=== PATIENT | male | born 1975 | race Caucasian/White ===

== ENCOUNTER 2017-12-19 14:44 | Emergency (ER) | payer OTHER ==
[~2017-12-19] VITALS: Ht 190.5 cm; Wt 92.5 kg
[2017-12-19 15:19] LABS: BASOPHILS # (AUTO) 0.04 x10^3/uL (0-0.1); BASOPHILS % (AUTO) 1 % (0-1); EOSINOPHILS # (AUTO) 0.15 x10^3/uL (0-0.4); EOSINOPHILS % (AUTO) 2 % (1-7); LYMPHOCYTES # (AUTO) 2.44 x10^3/uL (1-3.4); LYMPHOCYTES % (AUTO) 33 % (22-44); MD NO; MEAN CORPUSCULAR HEMOGLOBIN 31.2 pg (27.5-34.5); MEAN CORPUSCULAR HGB CONC 34.3 g/dL (33.2-36.2); MEAN CORPUSCULAR VOLUME 90.9 fL (81-97); MEAN PLATELET VOLUME 8.7 fL (7.4-10.4); MONOCYTES # (AUTO) 0.57 x10^3/uL (0.2-0.8); MONOCYTES % (AUTO) 8 % (2-9); NEUTROPHILS % (AUTO) 57 % (42-75); PLATELET COUNT 213 x10^3/uL (130-400); RED BLOOD COUNT 5.19 x10^6/uL (4.38-5.82); RED CELL DISTRIBUTION WIDTH 12.9 % (9.4-14.8)
[2017-12-19 15:28] LABS: ALANINE AMINOTRANSFERASE 26 U/L (12-78); ALBUMIN 4.3 g/dL (3.4-5.0); ANION GAP 5 mmol/L (5-15); CALCIUM 9.1 mg/dL (8.5-10.1); CHLORIDE 105 mmol/L (98-107); CREATININE 0.93 mg/dL (0.7-1.3)
[2017-12-19] MEDS ORDERED: ALBU18HF INH (15:29)
[2017-12-19 15:33] LABS: ALKALINE PHOSPHATASE 94 U/L (45-117); BILIRUBIN,TOTAL 0.5 mg/dL (0.2-1.0); TOTAL PROTEIN 8.3 g/dL (6.4-8.2); TROPONIN I < 0.015 ng/mL (0.000-0.045)
[2017-12-19] MEDS ORDERED: ASPIRIN 81 MG TABLET CHEW PO ONE (16:00)
[2017-12-19 16:13] VITALS: BP 125/69
== END 2017-12-19 16:59 | disposition home or self-care (01) ==
LOC: ED 15:53
DX: R07.9 Chest pain, unspecified (principal); J45.909 Unspecified asthma, uncomplicated; F17.200 Nicotine dependence, unspecified, uncomplicated
CPT/HCPCS: 36415; 71045; 80053; 83880; 84484; 85025; 93005; 99285

== ENCOUNTER → 2018-01-01 | Outpatient (CLI) | payer OTHER ==
[~2018-01-01] MED LIST: ALBU18HF INH
== END | disposition home or self-care (01) ==
LOC: CVU 06:56
PROVIDERS: ATTEND Nurse Practitioner Primary Care
DX: I37.1 Nonrheumatic pulmonary valve insufficiency (principal); J45.909 Unspecified asthma, uncomplicated; R00.2 Palpitations; F17.210 Nicotine dependence, cigarettes, uncomplicated
CPT/HCPCS: 93017; 93306

== ENCOUNTER 2018-02-18 07:53 | Emergency (ER) | payer OTHER ==
[~2018-02-18] VITALS: Ht 190.5 cm; Wt 98.0 kg
[2018-02-18] MEDS ORDERED: KETOROLAC 30 MG/1 ML ONE (08:15)
[2018-02-18] MEDS ORDERED: DIAZEPAM 5 MG TABLET ONE (08:15)
[2018-02-18] MEDS ORDERED: DIAZEPAM 5 MG TABLET PO ONE (08:30)
[2018-02-18] MEDS ORDERED: KETOROLAC 30 MG/1 ML IM ONE (08:30)
[2018-02-18 09:04] VITALS: BP 139/77
== END 2018-02-18 09:49 | disposition home or self-care (01) ==
LOC: ED 09:21
DX: M54.5 Low back pain (principal); Z98.1 Arthrodesis status
CPT/HCPCS: 72148; 96372; 99284; J1885